=== PATIENT | male | born 2000 | race Caucasian/White ===

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

== ENCOUNTER 2018-02-10 18:33 | Emergency (ER) | payer OTHER ==
[2018-02-10 19:05] VITALS: RESP 18
--- NOTE | 2018-02-10 20:38 | ED ---
Abdominal Pain HPI - General Source: patient, RN notes reviewed Mode of arrival: ambulatory Limitations: no limitations <Concha Yanez - Last Filed: 02/10/18 22:06> <Chanel Huynh - Last Filed: 02/11/18 00:32> - General Chief Complaint: Abdominal Pain Stated Complaint: rt sided abd pain Time Seen by Provider: 02/10/18 20:22 - History of Present Illness Initial Comments: This is a 17-year-old male who presents to the emergency department with chief complaint of abdominal pain. Patient states on Saturday he had an episode of vomiting. He states that shortly after he developed a dull pain in his mid abdomen that has since radiated to his right upper side. Patient states that he went to the urgent care and was told to come to the emergency department if symptoms worsened or did not improve. Patient states that he is no longer having nausea or vomiting. He states he is eating normally. However, patient states that he continues to have the pain. He states it is intermittent and dull. He states it is positional, brought on sometimes with movement. He denies any fevers or chills, chest pain or shortness of breath, diarrhea. (Concha Yanez) - Related Data Home Medications Medication Instructions Recorded Confirmed Sertraline [Zoloft] 25 mg PO HS 10/30/16 02/10/18 Loratadine [Claritin] 10 mg PO DAILY 02/10/18 02/10/18 Allergies Allergy/AdvReac Type Severity Reaction Status Date / Time oxcarbazepine Allergy Rash/Hives Verified 02/10/18 20:08 [From Trileptal] Review of Systems ROS Other: All systems not noted in ROS Statement are negative. <Concha Yanez - Last Filed: 02/10/18 22:06> ROS Other: All systems not noted in ROS Statement are negative. <Chanel Huynh - Last Filed: 02/11/18 00:32> ROS Statement: Those systems with pertinent positive or pertinent negative responses have been documented in the HPI. Past Medical History Past Medical History: Seizure Disorder Additional Past Medical History / Comment(s): Periventricular heterotropia ( seizure disorder) History of Any Multi-Drug Resistant Organisms: None Reported Additional Past Surgical History / Comment(s): tear duct probe Past Psychological History: No Psychological Hx Reported Smoking Status: Never smoker Past Alcohol Use History: None Reported Past Drug Use History: None Reported <Concha Yanez - Last Filed: 02/10/18 22:06> General Exam Limitations: no limitations <Concha Yanez - Last Filed: 02/10/18 22:06> <Chanel Huynh - Last Filed: 02/11/18 00:32> - General Exam Comments Initial Comments: General: Awake and alert, well-developed; in no apparent distress. Does not appear acutely ill. HEENT: Head atraumatic, normocephalic. Pupils are equal, round and reactive to light. Extraocular movements intact. Oropharynx moist without erythema or exudate. Neck: Supple. Normal ROM. Cardiovascular: Regular rate and rhythm. No murmurs, rubs or gallops. Chest symmetrical. Respiratory: Lungs clear to auscultation bilaterally. No wheezes, rales or rhonchi. Normal respiratory effort with no use of accessory muscles. Abdomen: Soft, thin, non-tender, non-distended. No rigidity, rebound or guarding. Normal bowel sounds in all 4 quadrants. No CVA tenderness bilaterally. Musculoskeletal: Normal ROM, no tenderness bilateral upper and lower extremities. Ambulating normally. Skin: Ronda, warm and dry without rashes or lesions. Neurological: Alert and oriented x3. CN II-XII grossly intact. Speech is fluent and answers are appropriate. No focal neuro deficits. Psychiatric: Normal mood and affect. No overt signs of depression or anxiety noted. (Concha Yanez) Vital Signs 02/10/18 02/10/18 19:02 22:33 Temperature 99.0 F 98.9 F Pulse Rate 110 H 91 Respiratory 18 18 Rate Blood Pressure 127/77 123/69 O2 Sat by Pulse 100 98 Oximetry Medical Decision Making - Lab Data Result diagrams: 02/10/18 21:04 02/10/18 21:04 - Radiology Data Radiology results: report reviewed <Concha Yanez - Last Filed: 02/10/18 22:06> - Lab Data Result diagrams: 02/10/18 21:04 02/10/18 21:04 <Chanel Huynh - Last Filed: 02/11/18 00:32> - Medical Decision Making This is a 17-year-old male who presents to emergency department chief complaint of right side pain. Abdomen is soft and non-tender. Patient states that the pain is positional, coming on with movement. CBC, CMP and UA revealed no significant abnormalities. X-ray KUB shows no evidence for acute abdomen. I'm suspicious for a muscle wall strain. Recommend rest, ice and Motrin or Tylenol as needed. Patient denies pain while in the emergency department. Vital signs are stable and he is in no acute distress. He will be discharged home at this time. He is in agreement with plan and voices understanding. He will be discharged home at this time. All questions answered. Case discussed with attending physician, Dr. Huynh. (Concha Yanez) I was available for consultation in the emergency department. The history and physical exam were done by the midlevel provider. I was consulted for this patient's care. I reviewed the case with the midlevel provider and based on their presentation of the patient, I agree with the assessment, medical decision making and plan of care as documented. (Chanel Huynh) - Lab Data Lab Results 02/10/18 02/10/18 02/10/18 Range/Units 21:04 21:04 21:49 WBC 9.9 (4.0-11.0) k/uL RBC 4.93 (4.30-5.90) m/uL Hgb 15.1 (13.0-17.5) gm/dL Hct 44.8 (39.0-53.0) % MCV 90.8 (80.0-100.0) fL MCH 30.5 (25.0-35.0) pg MCHC 33.6 (31.0-37.0) g/dL RDW 11.9 (11.5-15.5) % Plt Count 252 (150-450) k/uL Neutrophils % 75 % Lymphocytes % 18 % Monocytes % 5 % Eosinophils % 1 % Basophils % 1 % Neutrophils # 7.4 (1.3-7.7) k/uL Lymphocytes # 1.8 (1.0-4.8) k/uL Monocytes # 0.5 (0-1.0) k/uL Eosinophils # 0.1 (0-0.7) k/uL Basophils # 0.1 (0-0.2) k/uL Sodium 140 (137-145) mmol/L Potassium 3.9 (3.5-5.1) mmol/L Chloride 102 (98-107) mmol/L Carbon Dioxide 26 (22-30) mmol/L Anion Gap 12 mmol/L BUN 12 (9-20) mg/dL Creatinine 0.62 L (0.66-1.25) mg/dL Est GFR (CKD-EPI)AfAm >90 (>60 ml/min/1.73 sqM) Est GFR (CKD-EPI)NonAf >90 (>60 ml/min/1.73 sqM) Glucose 94 (74-99) mg/dL Calcium 9.1 (8.4-10.2) mg/dL Total Bilirubin 0.7 (0.2-1.3) mg/dL AST 17 (17-59) U/L ALT 20 L (21-72) U/L Alkaline Phosphatase 77 (38-126) U/L Total Protein 7.2 (6.3-8.2) g/dL Albumin 4.8 (3.5-5.0) g/dL Amylase 48 (30-110) U/L Lipase 82 (23-300) U/L Urine Color Yellow Urine Appearance Clear (Clear) Urine pH 7.0 (5.0-8.0) Ur Specific [place] 1.015 (1.001-1.035) Urine Protein Negative (Negative) Urine Glucose (UA) Negative (Negative) Urine Ketones Negative (Negative) Urine Blood Negative (Negative) Urine Nitrite Negative (Negative) Urine Bilirubin Negative (Negative) Urine Urobilinogen 4.0 (<2.0) mg/dL Ur Leukocyte Esterase Negative (Negative) - Radiology Data X-ray KUB impression: Nonacute abdomen. No change. (Concha Yanez) Disposition Is patient prescribed a controlled substance at d/c from ED?: No Time of Disposition: 22:11 <Concha Yanez - Last Filed: 02/10/18 22:06> <Chanel Huynh - Last Filed: 02/11/18 00:32> Clinical Impression: Abdominal wall pain Disposition: HOME SELF-CARE Condition: Good Instructions: Abdominal Pain (ED) Additional Instructions: Please follow up with primary care provider within 1-2 days. Return to emergency department if symptoms should worsen or any concerns arise. Referrals: None,Stated [Primary Care Provider] - 1-2 days
--- NOTE | 2018-02-10 21:01 | XR ---
EXAMINATION TYPE: XR KUB DATE OF EXAM: 02/10/2018 COMPARISON: 02/14/2013 HISTORY: Pain TECHNIQUE: 2 views upright FINDINGS: Bowel gas pattern is normal. There is no sign of intestinal obstruction or pneumoperitoneum . Fecal pattern is normal. There are no pathologic calcifications over the kidneys. Lung bases are cl ear. IMPRESSION: Nonacute abdomen. No change.
[2018-02-10 21:14] LABS: Basophils # (A) 0.1 k/uL (0-0.2); Basophils % (A) 1 %; Eosinophils # (A) 0.1 k/uL (0-0.7); Eosinophils % (A) 1 %; HCT 44.8 % (39.0-53.0); HGB 15.1 gm/dL (13.0-17.5); Lymphocytes # (A) 1.8 k/uL (1.0-4.8); Lymphocytes % (A) 18 %; MCH 30.5 pg (25.0-35.0); MCHC 33.6 g/dL (31.0-37.0); MCV 90.8 fL (80.0-100.0); Mean Platelet Volume 7.3; Monocytes # (A) 0.5 k/uL (0-1.0); Monocytes % (A) 5 %; Neutrophils # (A) 7.4 k/uL (1.3-7.7); Neutrophils % (A) 75 %; Platelet Count 252 k/uL (150-450); RBC 4.93 m/uL (4.30-5.90); RDW 11.9 % (11.5-15.5); WBC 9.9 k/uL (4.0-11.0)
[2018-02-10 21:23] LABS: ALT 20 U/L (21-72); AST 17 U/L (17-59); Albumin 4.8 g/dL (3.5-5.0); Alkaline Phosphatase 77 U/L (38-126); Amylase 48 U/L (30-110); Anion Gap 12 mmol/L; Blood Urea Nitrogen 12 mg/dL (9-20); Calcium 9.1 mg/dL (8.4-10.2); Carbon Dioxide 26 mmol/L (22-30); Chloride 102 mmol/L (98-107); Glucose 94 mg/dL (74-99); Lipase 82 U/L (23-300); Potassium 3.9 mmol/L (3.5-5.1); Sodium 140 mmol/L (137-145); Total Bilirubin 0.7 mg/dL (0.2-1.3); Total Protein 7.2 g/dL (6.3-8.2)
[2018-02-10 22:01] LABS: Appearance,Urine Clear (Clear); Bilirubin,Urine Negative (Negative); Blood,Urine Negative (Negative); Color,Urine Yellow; Glucose,Urine (UA) Negative (Negative); Ketones,Urine Negative (Negative); Leukocyte Esterase,Urine Negative (Negative); Nitrite,Urine Negative (Negative); Protein,Urine Negative (Negative); Specific Gravity,Urine 1.015 (1.001-1.035)
[2018-02-10 22:34] VITALS: BP 123/69; PULSE 91; TEMP 98.9
== END 2018-02-10 22:33 | disposition home or self-care (01) ==
LOC: EC 18:33
DX: R10.11 Right upper quadrant pain (principal); Z88.8 Allergy status to other drugs, medicaments and biological substances; Z79.899 Other long term (current) drug therapy
CPT/HCPCS: 36415; 74018; 80053; 81003; 82150; 83690; 85025; 99284

== ENCOUNTER → 2018-02-19 | Outpatient (CLI) | payer OTHER ==
--- NOTE | 2018-02-19 17:15 | NM ---
EXAMINATION TYPE: NM hepatobiliary w EF DATE OF EXAM: 02/19/2018 COMPARISON: NONE HISTORY: Abdominal pain and cramping TECHNIQUE: After the intravenous administration of 4.79 mCi Tc 99m Mebrofenin hepatobiliary scintigra phy is performed. Immediate images post injection. FINDINGS: There is satisfactory initial accumulation of tracer by the liver. The gallbladder is visualized wit hin 5 minutes. The small bowel activity is noted within 35 minutes. At one hour 8 ounces of oral en sure plus is given to mimic CCK and gallbladder ejection fraction is calculated at 68 %, in the ruthy l range. Therefore there is no scintigraphic evidence of cystic or common bile duct obstruction to s uggest acute cholecystitis or gallbladder dyskinesia. IMPRESSION: Normal gallbladder ejection fraction. No focal liver defect. Normal exam.
== END | disposition home or self-care (01) ==
LOC: RADNMMAIN 15:02
PROVIDERS: ATTEND Internal Medicine
DX: R10.11 Right upper quadrant pain (principal); R11.2 Nausea with vomiting, unspecified; Z88.8 Allergy status to other drugs, medicaments and biological substances
CPT/HCPCS: 78226; A9537

== ENCOUNTER 2018-09-25 02:06 | Emergency (ER) | payer OTHER ==
[2018-09-25] MEDS ORDERED: OXYMETAZOLINE 0.05% NASL SPRAY 1 SPRAY BOTTLE NASAL STA (02:50)
--- NOTE | 2018-09-25 03:07 | ED ---
ENT HPI - General Chief complaint: ENT Stated complaint: Nose bleed Time Seen by Provider: 09/25/18 02:50 Source: patient, family Mode of arrival: ambulatory Limitations: no limitations - History of Present Illness Initial comments: 17-year-old male patient presents to the emergency department today for evaluation of epistaxis. Patient states for the last hour he has been exhibiting bleeding from the left nostril. Patient states that he has had intermittent bleeding throughout the day however he is able to get it stopped rather quickly. Patient states he has been sick with upper respiratory symptoms including nasal congestion, cough, and sore throat. Patient denies any fever or chills. He denies any headache, facial pain, dizziness, or weakness. Denies any use of anticoagulant medications. Denies any clotting disorders. Patient states he is healthy with no chronic medical conditions. He reports bleeding has stopped currently. Patient denies any recent rash, shortness breath, chest pain, abdominal pain, nausea, vomiting, diarrhea, constipation, back pain, numbness, tingling, hematuria, dysuria, urinary urgency, urinary frequency, visual changes, or any other complaints. - Related Data Home Medications Medication Instructions Recorded Confirmed Sertraline [Zoloft] 25 mg PO HS 10/30/16 02/10/18 Loratadine [Claritin] 10 mg PO DAILY 02/10/18 02/10/18 Allergies Allergy/AdvReac Type Severity Reaction Status Date / Time oxcarbazepine Allergy Rash/Hives Verified 09/25/18 02:13 [From Trileptal] Review of Systems ROS Statement: Those systems with pertinent positive or pertinent negative responses have been documented in the HPI. ROS Other: All systems not noted in ROS Statement are negative. Past Medical History Past Medical History: Seizure Disorder Additional Past Medical History / Comment(s): Periventricular heterotropia (seizure disorder) History of Any Multi-Drug Resistant Organisms: None Reported Additional Past Surgical History / Comment(s): tear duct probe Past Psychological History: No Psychological Hx Reported Smoking Status: Never smoker Past Alcohol Use History: None Reported Past Drug Use History: None Reported General Exam Limitations: no limitations General appearance: alert, in no apparent distress, other (Physical well- developed, well-nourished adult male patient in no acute distress. Vital signs upon presentation are temperature 98.3F, pulse 97, respirations 20, blood pressure 135/83, pulse ox 99% on room air.) Eye exam: Present: normal appearance, PERRL, EOMI. Absent: scleral icterus, conjunctival injection, periorbital swelling ENT exam: Present: normal exam, normal oropharynx, mucous membranes moist, other (dried blood noted to the right nare. No active bleeding with inspection of the right or left nasal passage. ) Respiratory exam: Present: normal lung sounds bilaterally. Absent: respiratory distress, wheezes, rales, rhonchi, stridor Cardiovascular Exam: Present: regular rate, normal rhythm, normal heart sounds. Absent: systolic murmur, diastolic murmur, rubs, gallop, clicks Neurological exam: Present: alert, oriented X3, CN II-XII intact Psychiatric exam: Present: normal affect, normal mood Skin exam: Present: warm, dry, intact, normal color. Absent: rash Course Vital Signs 09/25/18 09/25/18 02:09 03:16 Temperature 98.3 F 98 F Pulse Rate 97 78 Respiratory 20 18 Rate Blood Pressure 135/83 123/73 O2 Sat by Pulse 99 97 Oximetry Medical Decision Making - Medical Decision Making 17-year-old male patient presents to the emergency department today for evaluation of epistaxis. Patient reported bleeding from the right nostril for the last hour. The bleeding had ceased by the time of my evaluation. Patient is instructed to obtain [id number] nasal saline and use twice daily to keep nasal passages moist. He is instructed to follow-up with his primary care physician for recheck in 1-2 days. Return parameters were discussed in detail. He verbalizes understanding and agrees with this plan. Disposition Clinical Impression: Epistaxis Disposition: HOME SELF-CARE Condition: Good Instructions (If sedation given, give patient instructions): Nosebleed (ED) Additional Instructions: Use medications as directed. Obtain [id number] Nasal Saline twice daily to keep nasal passages moist. Follow-up with her primary care physician for further evaluation. Return to the emergency department for any new, worsening, or concerning symptoms. Is patient prescribed a controlled substance at d/c from ED?: No Referrals: Tanner Euceda MD [Primary Care Provider] - 1-2 days Time of Disposition: 03:07
[2018-09-25 03:17] VITALS: BP 123/73; PULSE 78; RESP 18; TEMP 98
== END 2018-09-25 03:16 | disposition home or self-care (01) ==
LOC: EC 02:06
DX: R04.0 Epistaxis (principal); R09.81 Nasal congestion; R05 Cough; J02.9 Acute pharyngitis, unspecified; Z79.899 Other long term (current) drug therapy; Z88.8 Allergy status to other drugs, medicaments and biological substances
CPT/HCPCS: 99282

== ENCOUNTER → 2018-10-01 | Outpatient (CLI) | payer OTHER ==
--- NOTE | 2018-10-01 11:28 | XR ---
EXAMINATION TYPE: XR chest 2V DATE OF EXAM: 10/01/2018 COMPARISON: 05/10/2015 HISTORY: Chest pain TECHNIQUE: Frontal and lateral views of the chest are obtained. FINDINGS: There is no focal air space opacity. No evidence for pneumothorax. No pleural effusion. The cardiac silhouette size is within normal limits. The osseous structures are grossly intact. IMPRESSION: 1. No acute cardiopulmonary process.
== END | disposition home or self-care (01) ==
LOC: RADXRMAIN 11:15
PROVIDERS: ATTEND Nurse Practitioner Adult Health
DX: R04.2 Hemoptysis (principal); Z88.8 Allergy status to other drugs, medicaments and biological substances
CPT/HCPCS: 71046

== ENCOUNTER 2019-05-03 20:09 | Emergency (ER) | payer OTHER ==
[2019-05-03 20:40] VITALS: BP 128/85; PULSE 88; RESP 16; TEMP 98.5
--- NOTE | 2019-05-03 21:10 | XR ---
EXAMINATION TYPE: XR knee 4V LT DATE OF EXAM: 05/03/2019 COMPARISON: NONE HISTORY: Pain TECHNIQUE: FINDINGS: I see no fracture nor dislocation. Joint spaces are fairly normal. There is no evidence of joint effusion. There is small fibrous cortical defect distal femur. IMPRESSION: Negative left knee exam. No fracture.
--- NOTE | 2019-05-03 21:19 | ED ---
General Adult HPI - General Chief complaint: Extremity Injury, Lower Stated complaint: Knee pain Time Seen by Provider: 05/03/19 20:41 Source: patient, RN notes reviewed Mode of arrival: ambulatory Limitations: no limitations - History of Present Illness Initial comments: 18-year-old male with a past medical history of seizure disorder presents to the emergency department for chief clinical plan of left knee pain. Patient states he was standing to feet up on a ladder when he accidentally fell onto a bent left knee. States it did not seem to hurt that much at first however he was driving home and went to scratch his left knee and noticed there was more pain so decided to be evaluated. Patient is able to ambulate of the left knee. He does not have any fevers or chills. He denies any pain of the ankle or hip.Patient has no other complaints at this time including shortness of breath, chest pain, abdominal pain, nausea or vomiting, headache, or visual changes. - Related Data Home Medications Medication Instructions Recorded Confirmed Sertraline [Zoloft] 25 mg PO HS 10/30/16 02/10/18 Loratadine [Claritin] 10 mg PO DAILY 02/10/18 02/10/18 Allergies Allergy/AdvReac Type Severity Reaction Status Date / Time oxcarbazepine Allergy Rash/Hives Verified 09/25/18 02:13 [From Trileptal] Review of Systems ROS Statement: Those systems with pertinent positive or pertinent negative responses have been documented in the HPI. ROS Other: All systems not noted in ROS Statement are negative. Past Medical History Past Medical History: Seizure Disorder Additional Past Medical History / Comment(s): Periventricular heterotropia (seizure disorder) History of Any Multi-Drug Resistant Organisms: None Reported Additional Past Surgical History / Comment(s): tear duct probe Past Psychological History: No Psychological Hx Reported Smoking Status: Never smoker Past Alcohol Use History: None Reported Past Drug Use History: None Reported General Exam Limitations: no limitations General appearance: alert, in no apparent distress Head exam: Present: atraumatic, normocephalic, normal inspection Eye exam: Present: normal appearance, PERRL, EOMI. Absent: scleral icterus, conjunctival injection, periorbital swelling ENT exam: Present: normal exam, mucous membranes moist Neck exam: Present: normal inspection, full ROM. Absent: tenderness, meningismus, lymphadenopathy Respiratory exam: Present: normal lung sounds bilaterally. Absent: respiratory distress, wheezes, rales, rhonchi, stridor Cardiovascular Exam: Present: regular rate, normal rhythm, normal heart sounds. Absent: systolic murmur, diastolic murmur, rubs, gallop, clicks Extremities exam: Present: full ROM (full Range of motion of the left knee.), tenderness (Mild generalized tenderness of the left knee), normal capillary refill (Capillary refill less than 2 seconds, DP pulse 2+ in the left lower extremity.), other (sensation intact in the left lower extremity.). Absent: pedal edema, joint swelling (No significant edema erythema noted of the left knee. No abrasions or lacerations.), calf tenderness Neurological exam: Present: alert Course Vital Signs 05/03/19 20:38 Temperature 98.5 F Pulse Rate 88 Respiratory 16 Rate Blood Pressure 128/85 O2 Sat by Pulse 97 Oximetry Medical Decision Making - Medical Decision Making Vitals are stable. Exam reveals minimal generalized anterior left knee tenderness. No calf tenderness, negative Homans sign. Full range of motion. X-ray of the left knee shows a negative left knee exam. No fracture. Do not have significant concern for occult fracture. It is sent patient likely is contusion of the left knee. Recommend Motrin Tylenol and following up with primary care. He was given Alek wrap. He will return if he has any worsening symptoms. Disposition Clinical Impression: Knee pain, left Disposition: HOME SELF-CARE Condition: Good Instructions (If sedation given, give patient instructions): Knee Pain (ED) Additional Instructions: Please take Motrin and Tylenol for pain. Rest ice and elevate the left knee. Follow-up with primary care in 1-2 days. Return here to the emergency department if you have any worsening symptoms. Is patient prescribed a controlled substance at d/c from ED?: No Referrals: Tanner Euceda MD [Primary Care Provider] - 1-2 days Time of Disposition: 21:18
== END 2019-05-03 22:01 | disposition home or self-care (01) ==
LOC: EC 20:09
DX: M25.562 Pain in left knee (principal); Z79.899 Other long term (current) drug therapy; Z88.8 Allergy status to other drugs, medicaments and biological substances
CPT/HCPCS: 99283

== ENCOUNTER 2020-07-19 19:57 | Emergency (ER) | payer BC ==
[2020-07-19] MEDS ORDERED: IBUPROFEN 400 MG TAB PO STA (21:24)
--- NOTE | 2020-07-19 21:30 | ED ---
Fever HPI - General Source: patient, RN notes reviewed Mode of arrival: ambulatory Limitations: no limitations - History of Present Illness MD Complaint: fever -: days(s) (6) Temperature Source: oral Associated Symptoms: denies other symptoms Treatments Prior to Arrival: Acetaminophen (last dose tylenol 4 hours ago) <Jovanny Schaffer - Last Filed: 07/19/20 23:42> <Nael Kilgore - Last Filed: 07/19/20 23:54> <Allan Lees - Last Filed: 07/20/20 03:22> - General Chief Complaint: Fever Stated Complaint: Fever Time Seen by Provider: 07/19/20 21:16 - History of Present Illness Initial Comments: 19-year-old white male patient in no distress, presents to the emergency room with 6 days of fever with highest being 102. Patient denies any other symptoms. Denies sore throat, nausea vomiting diarrhea, cough, penile discharge, neck pain, headache, or recent injury. Patient states has been self treating with Tylenol and the fever goes down but then comes back up. Patient denies any sick contacts. Lives with a roommate who is not sick. Patient states came to the emergency room today because it has been 6 days of fever and unsure of the cause. (Jovanny Schaffer) - Related Data Home Medications Medication Instructions Recorded Confirmed Sertraline [Zoloft] 25 mg PO HS 10/30/16 02/10/18 Loratadine [Claritin] 10 mg PO DAILY 02/10/18 02/10/18 Allergies Allergy/AdvReac Type Severity Reaction Status Date / Time oxcarbazepine Allergy Rash/Hives Verified 07/19/20 21:04 [From Trileptal] Review of Systems ROS Other: All systems not noted in ROS Statement are negative. <Jovanny Schaffer - Last Filed: 07/19/20 23:42> ROS Other: All systems not noted in ROS Statement are negative. <Nael Kilgore - Last Filed: 07/19/20 23:54> ROS Other: All systems not noted in ROS Statement are negative. <Allan Lees - Last Filed: 07/20/20 03:22> ROS Statement: Those systems with pertinent positive or pertinent negative responses have been documented in the HPI. Past Medical History Past Medical History: Seizure Disorder Additional Past Medical History / Comment(s): Periventricular heterotropia (seizure disorder) History of Any Multi-Drug Resistant Organisms: None Reported Additional Past Surgical History / Comment(s): tear duct probe Past Psychological History: No Psychological Hx Reported Smoking Status: Never smoker Past Alcohol Use History: None Reported Past Drug Use History: None Reported <Jovanny Schaffer - Last Filed: 07/19/20 23:42> General Exam Limitations: no limitations General appearance: alert, in no apparent distress Head exam: Present: atraumatic, normocephalic, normal inspection Eye exam: Present: normal appearance, PERRL, EOMI. Absent: scleral icterus, conjunctival injection, periorbital swelling ENT exam: Present: normal exam, mucous membranes moist Neck exam: Present: normal inspection. Absent: tenderness, meningismus, lymphadenopathy Respiratory exam: Present: normal lung sounds bilaterally. Absent: respiratory distress, wheezes, rales, rhonchi, stridor Cardiovascular Exam: Present: normal rhythm, tachycardia GI/Abdominal exam: Present: soft, normal bowel sounds. Absent: distended, tenderness, guarding, rebound, rigid Extremities exam: Present: normal inspection, full ROM, normal capillary refill. Absent: tenderness, pedal edema, joint swelling, calf tenderness Back exam: Present: normal inspection, full ROM. Absent: tenderness, rash noted Neurological exam: Present: alert, oriented X3, CN II-XII intact Psychiatric exam: Present: normal affect, normal mood Skin exam: Present: warm, dry, intact, normal color. Absent: rash <Aleksey Schafferi - Last Filed: 07/19/20 23:42> General appearance: alert, in no apparent distress Head exam: Present: atraumatic, normocephalic, normal inspection Eye exam: Present: normal appearance, PERRL, EOMI. Absent: scleral icterus, conjunctival injection, periorbital swelling ENT exam: Present: normal exam, mucous membranes moist Neck exam: Present: normal inspection. Absent: tenderness, meningismus, lymphadenopathy Respiratory exam: Present: normal lung sounds bilaterally. Absent: respiratory distress, wheezes, rales, rhonchi, stridor Cardiovascular Exam: Present: regular rate, normal rhythm, normal heart sounds. Absent: systolic murmur, diastolic murmur, rubs, gallop, clicks GI/Abdominal exam: Present: soft, normal bowel sounds. Absent: distended, tenderness, guarding, rebound, rigid Extremities exam: Present: normal inspection, full ROM, normal capillary refill. Absent: tenderness, pedal edema, joint swelling, calf tenderness Back exam: Present: normal inspection Neurological exam: Present: alert, oriented X3, CN II-XII intact Psychiatric exam: Present: normal affect, normal mood Skin exam: Present: warm, dry, intact, normal color. Absent: rash <Allan Lees - Last Filed: 07/20/20 03:22> Course <Allan Lees - Last Filed: 07/20/20 03:22> Vital Signs 07/19/20 07/19/20 21:02 22:00 Temperature 101.4 F H 99.0 F Pulse Rate 118 H 112 H Respiratory 22 20 Rate Blood Pressure 108/57 133/80 O2 Sat by Pulse 99 99 Oximetry - Reevaluation(s) Reevaluation #1: 07/20/20 03:20 Medical record is reviewed (Allan Lees) Reevaluation #2: 07/20/20 03:20 patient does have persistent episodic fever here in the ER (Allan Lees) Reevaluation #3: 07/20/20 03:20 Informed results, remains in no distress answered (Allan Lees) Medical Decision Making - Lab Data Result diagrams: 07/19/20 22:44 07/19/20 22:44 <Jovanny Schaffer - Last Filed: 07/19/20 23:42> - Lab Data Result diagrams: 07/19/20 22:44 07/19/20 22:44 <Nael Kilgore - Last Filed: 07/19/20 23:54> - Lab Data Result diagrams: 07/19/20 22:44 07/19/20 22:44 - Radiology Data Radiology results: report reviewed (CXR negative for acute disease), image reviewed <Allan Lees - Last Filed: 07/20/20 03:22> - Medical Decision Making Case discussed with Dr. Kilgore. Patient with a WBC count of 15.0, ALT of 145, and AST of 158. (Jovanny Schaffer) 19-year-old male with a fever of unknown origin spec vital accident. Patient can be discharged home (Allan Lees) - Lab Data Lab Results 07/19/20 07/19/20 07/19/20 Range/Units 21:37 22:44 22:44 WBC 15.0 H (3.8-10.6) k/uL RBC 4.28 L (4.30-5.90) m/uL Hgb 13.7 (13.0-17.5) gm/dL Hct 40.3 (39.0-53.0) % MCV 94.1 (80.0-100.0) fL MCH 31.9 (25.0-35.0) pg MCHC 33.9 (31.0-37.0) g/dL RDW 12.7 (11.5-15.5) % Plt Count 217 (150-450) k/uL MPV 7.8 Neutrophils % (Manual) 41 % Lymphocytes % (Manual) 45 % Monocytes % (Manual) 14 % Neutrophils # (Manual) 6.15 (1.3-7.7) k/uL Lymphocytes # (Manual) 6.75 H (1.0-4.8) k/uL Monocytes # (Manual) 2.10 H (0-1.0) k/uL Nucleated RBCs 0 (0-0) /100 WBC Manual Slide Review Performed Sodium 133 L (137-145) mmol/L Potassium 4.2 (3.5-5.1) mmol/L Chloride 101 (98-107) mmol/L Carbon Dioxide 28 (22-30) mmol/L Anion Gap 4 mmol/L BUN 10 (9-20) mg/dL Creatinine 0.69 (0.66-1.25) mg/dL Est GFR (CKD-EPI)AfAm >90 (>60 ml/min/1.73 sqM) Est GFR (CKD-EPI)NonAf >90 (>60 ml/min/1.73 sqM) Glucose 99 (74-99) mg/dL Calcium 8.8 (8.4-10.2) mg/dL Total Bilirubin 1.0 (0.2-1.3) mg/dL AST 158 H (17-59) U/L ALT 145 H (4-49) U/L Alkaline Phosphatase 99 (38-126) U/L Lactate Dehydrogenase (313-618) U/L C-Reactive Protein (<10.0) mg/L Total Protein 6.7 (6.3-8.2) g/dL Albumin 3.6 (3.5-5.0) g/dL Acetaminophen ug/mL Coronavirus (PCR) Not Detected (Not Detectd) Heterophile Antibody (Negative) 07/19/20 07/19/20 Range/Units 22:44 22:44 WBC (3.8-10.6) k/uL RBC (4.30-5.90) m/uL Hgb (13.0-17.5) gm/dL Hct (39.0-53.0) % MCV (80.0-100.0) fL MCH (25.0-35.0) pg MCHC (31.0-37.0) g/dL RDW (11.5-15.5) % Plt Count (150-450) k/uL MPV Neutrophils % (Manual) % Lymphocytes % (Manual) % Monocytes % (Manual) % Neutrophils # (Manual) (1.3-7.7) k/uL Lymphocytes # (Manual) (1.0-4.8) k/uL Monocytes # (Manual) (0-1.0) k/uL Nucleated RBCs (0-0) /100 WBC Manual Slide Review Sodium (137-145) mmol/L Potassium (3.5-5.1) mmol/L Chloride (98-107) mmol/L Carbon Dioxide (22-30) mmol/L Anion Gap mmol/L BUN (9-20) mg/dL Creatinine (0.66-1.25) mg/dL Est GFR (CKD-EPI)AfAm (>60 ml/min/1.73 sqM) Est GFR (CKD-EPI)NonAf (>60 ml/min/1.73 sqM) Glucose (74-99) mg/dL Calcium (8.4-10.2) mg/dL Total Bilirubin (0.2-1.3) mg/dL AST (17-59) U/L ALT (4-49) U/L Alkaline Phosphatase (38-126) U/L Lactate Dehydrogenase 1250 H (313-618) U/L C-Reactive Protein 35.1 H (<10.0) mg/L Total Protein (6.3-8.2) g/dL Albumin (3.5-5.0) g/dL Acetaminophen <10.0 ug/mL Coronavirus (PCR) (Not Detectd) Heterophile Antibody Negative (Negative) Disposition <Jovanny Schafefr - Last Filed: 07/19/20 23:42> <Nael Kilgore - Last Filed: 07/19/20 23:54> Is patient prescribed a controlled substance at d/c from ED?: No <Allan Lees - Last Filed: 07/20/20 03:22> Clinical Impression: Fever, Viral infection Disposition: HOME SELF-CARE Condition: Good Instructions (If sedation given, give patient instructions): Fever in Adults (ED), Viral Syndrome (ED) Referrals: Dilia Gottlieb [facility] [Primary Care Provider] - 1-2 days
--- NOTE | 2020-07-19 22:08 | XR ---
EXAMINATION TYPE: XR chest 2V DATE OF EXAM: 07/19/2020 COMPARISON: 05/10/2015 HISTORY: Fever TECHNIQUE: FINDINGS: Heart and mediastinum are normal. Lungs are clear. Diaphragm is normal. Bony thorax appears normal. Pulmonary vascularity is normal. IMPRESSION: Normal chest. There is clearing of the right upper lobe pneumonia compared to old exam.
[2020-07-19 22:58] LABS: HCT 40.3 % (39.0-53.0); HGB 13.7 gm/dL (13.0-17.5); MCH 31.9 pg (25.0-35.0); MCHC 33.9 g/dL (31.0-37.0); MCV 94.1 fL (80.0-100.0); Mean Platelet Volume 7.8; Platelet Count 217 k/uL (150-450); RBC 4.28 m/uL (4.30-5.90); RDW 12.7 % (11.5-15.5)
[2020-07-19 23:10] LABS: ALT 145 U/L (4-49); AST 158 U/L (17-59); African American GFR (CKD) >90 (>60 ml/min/1.73 sqM); Albumin 3.6 g/dL (3.5-5.0); Alkaline Phosphatase 99 U/L (38-126); Anion Gap 4 mmol/L; Blood Urea Nitrogen 10 mg/dL (9-20); Calcium 8.8 mg/dL (8.4-10.2); Carbon Dioxide 28 mmol/L (22-30); Chloride 101 mmol/L (98-107); Glucose 99 mg/dL (74-99); Non-African American GFR(CKD) >90 (>60 ml/min/1.73 sqM); Potassium 4.2 mmol/L (3.5-5.1); Sodium 133 mmol/L (137-145); Total Protein 6.7 g/dL (6.3-8.2)
[2020-07-19] MEDS ORDERED: SODIUM CHLORIDE 0.9% 1,000 ML IV ONE (23:53)
[2020-07-20 00:29] LABS: Lymphocytes # (M) 6.75 k/uL (1.0-4.8); Neutrophils # (M) 6.15 k/uL (1.3-7.7); Neutrophils % (M) 41 %; Nucleated Red Blood Cells 0 /100 WBC (0-0); Total Cells Counted 100
[2020-07-20 01:26] LABS: Acetaminophen <10.0 ug/mL; C Reactive Protein 35.1 mg/L (<10.0); LDH 1250 U/L (313-618)
[2020-07-20] MEDS ORDERED: SODIUM CHLORIDE 0.9% 1,000 ML IV STA (01:33)
[2020-07-20 03:30] LABS: Appearance,Urine Clear (Clear); Bilirubin,Urine Negative (Negative); Blood,Urine Negative (Negative); Color,Urine Yellow; Glucose,Urine (UA) Negative (Negative); Ketones,Urine 1+ (Negative); Leukocyte Esterase,Urine Negative (Negative); Nitrite,Urine Negative (Negative); PH, Urine 6.5 (5.0-8.0); Protein,Urine Negative (Negative); Specific Gravity,Urine 1.008 (1.001-1.035)
[2020-07-20 05:19] VITALS: BP 115/68; PULSE 88; RESP 18; TEMP 97.9
[2020-07-20 11:33] LABS: Hepatitis A Antibody IgM Non-Reactive (Non-Reactive); Hepatitis B Core IgM Non-Reactive (Non-Reactive); Hepatitis B Surface Antigen Non-Reactive (Non-Reactive); Hepatitis C IgG Antibody Non-Reactive (Non-Reactive)
[2020-07-21 16:36] LABS: C. trachomatis,PCR Negative (Neg,Equiv); Chlamydia trachomatis Source Urine; N. gonorrhoeae,PCR Negative (Neg,Equiv); Neisseria Source Urine
== END 2020-07-20 04:18 | disposition home or self-care (01) ==
LOC: EC 19:57
DX: B34.9 Viral infection, unspecified (principal); R50.9 Fever, unspecified; Z20.822 Contact with and (suspected) exposure to COVID-19
CPT/HCPCS: 36415; 71046; 80053; 80074; 80143; 81003; 83615; 85025; 86140; 86308; 87491; 87591; 87635; 96360; 96361; 99283